=== PATIENT | male | born 1955 | race Caucasian/White ===

== ENCOUNTER 2017-07-09 05:20 | Day surgery (SDC) | payer BC ==
[~2017-07-09] VITALS: Ht 190.5 cm; Wt 107.5 kg
--- NOTE | ~2017-07-09 | O ---
[facility] [place] [address] OPERATIVE REPORT Name: ZAIN CORMIER Room #: 150-5 [facility]..#: [id number] Admission: 07/09/17 Attend Phys: Zain Chiu MD Discharge: Date of : 55 Report #: [id number] THIS REPORT FOR: //name// CC: MARY Chiu DATE OF SERVICE: 07/09/2017 PREOPERATIVE DIAGNOSIS: Right knee medial meniscus recurrent tear. POSTOPERATIVE DIAGNOSIS: Right knee medial meniscus tear and chondromalacia medial femoral condyle. PROCEDURE: Right knee arthroscopy, partial medial meniscectomy, chondroplasty medial femoral condyle. SURGEON: Zain Chiu MD CONCRETE POURER: LOREN Kong. ANESTHETIC: General. INDICATIONS: See hospital H and P. DESCRIPTION OF PROCEDURE: After adequate general anesthesia had been obtained, the patient's right lower extremity was prepped and draped in usual meticulous sterile fashion. Limb was exsanguinated with gravity, tourniquet inflated to 300 torr. Superomedial portal was established by first infiltrating with 0.5% Naropin and then making a stab incision with an 11 blade. Inflow cannula was placed. Knee was insufflated with fluid. Anterolateral and anteromedial portals were established utilizing the same technique. Complete diagnostic arthroscopy was performed. Medial compartment demonstrated grade 3 chondromalacia in the central weightbearing dome of the medial femoral condyle. There was a small unstable chondral fragment that was smoothed with a shaver. The posterior horn of his meniscus had a horizontal cleavage type tear as well as attenuation of the root attachment. The meniscus really was not a very good quality. I did not believe root repair was indicated. I trimmed the torn portion of the meniscus and smooth off the rough edge. The cruciate ligaments were intact. Lateral compartment demonstrated no abnormality. Patellofemoral compartment demonstrated chondral thinning patellar median ridge, but there was no unstable chondral fragments. At this time, the knee was irrigated copiously, 0.5% Naropin was infiltrated in [address] [id number] OPERATIVE REPORT Name: ZAIN CORMIER Room #: 150-5 [facility].#: [id number] Admission: 07/09/17 Attend Phys: Zain Chiu MD Discharge: Date of : 55 Report #: [id number] the knee. The portals closed with 4-0 nylon. Sterile compressive dressing was complied. Tourniquet deflated. By: [id number] Zain Chiu MD /nt
[~2017-07-09 05:20] MED LIST: ALLER-EASE180 MG PO; CENTRUM SILVER1 EAC2 PO; CRESTOR20 MG PO; PROTONIX40 M1 PO
[2017-07-09 11:00] VITALS: BP 113/75
[2017-07-09 13:28] VITALS: BP 113/75
== END 2017-07-09 16:51 | disposition home or self-care (01) ==
LOC: TBA 05:20 → OR 05:20
DX: S83.241A Other tear of medial meniscus, current injury, right knee, initial encounter (principal); M94.261 Chondromalacia, right knee; E78.00 Pure hypercholesterolemia, unspecified; K21.9 Gastro-esophageal reflux disease without esophagitis; Z98.890 Other specified postprocedural states; Z79.899 Other long term (current) drug therapy; X58.XXXA Exposure to other specified factors, initial encounter; Y93.89 Activity, other specified; Y92.89 Other specified places as the place of occurrence of the external cause; Y99.8 Other external cause status
CPT/HCPCS: 50010; 50101; 50405; 51038; 54170; 56526; 62110; 62900; 70005